=== PATIENT | female | born 1945 | race Caucasian/White ===

== ENCOUNTER → 2017-07-13 | Outpatient (CLI) | payer OTHER | LOC: MAMO 10:40 | DX: Z12.31 Encounter for screening mammogram for malignant neoplasm of breast (principal); Z80.3 Family history of malignant neoplasm of breast; R92.8 Other abnormal and inconclusive findings on diagnostic imaging of breast | CPT/HCPCS: G0202 ==

== ENCOUNTER → 2021-08-23 | Outpatient (CLI) | payer MEDICARE ==
[~2021-08-23] MED LIST: ANASTROZOLE1 MG PO; CALCITRATE200 MG PO; CALCIUM CITRATE PO; CELEBREX 200MG200 MG PO; CELEBREX200 MG PO; CITRACAL-VIT D1 EAC1 PO; CLARITIN10 MG PO; COQ-10100 MG PO; ECOTRIN81 MG PO; ELIQUIS 2.5 MG2.5 MG PO; FISH OIL 1,0001 EAC4 PO; FISH OIL 1,2001 EAC1 PO; HYDROCHLOROTHIA25 MG PO; IRON325 M1 PO; LEVOTHYROXINE100 MCG PO; LIPITOR TAB 2020 MG PO; LIPITOR20 MG PO; LISINOPRIL40 MG PO; MACROBID 100 M100 M1 PO; MELATONIN10 M2 PO; NORCO 5-325 TA1 EACH PO; OMEPRAZOLE20 M1 PO; OMEPRAZOLE20 MG PO; ONDANSETRON ODT4 MG SL; PERCOCET 10-321 EACH PO; RECLAST IV; SENNA LAX8.6 MG PO; SENOKOT PO; SENOKOT8.6 MG PO; STOOL SOFTENER100 MG PO; SYNTHROID100 MCG PO; TYLENOL W/CODEIN1 E1 PO; VITAMIN B3 PO; VITAMIN D31000 UNI1 PO; ZESTRIL40 MG PO
== END ==
LOC: OPSV 12:41
DX: S22.000A Wedge compression fracture of unspecified thoracic vertebra, initial encounter for closed fracture (principal); M81.0 Age-related osteoporosis without current pathological fracture
CPT/HCPCS: 96365; J3489